=== PATIENT | male | born 1955 | race Caucasian/White ===

== ENCOUNTER 2024-01-14 14:18 | Outpatient (REF) | payer MEDICARE, SELFPAY ==
--- NOTE | ~2024-01-14 | US_ITS ---
EXAMINATION: US VENOUS ULTRASOUND WITH DOPPLER LOWER EXTREMITY, RIGHT CLINICAL INFORMATION: Right leg swelling with elevated d-dimer COMPARISON: None available. TECHNIQUE: Ultrasound of the deep veins is performed from the hip to the calf with compression sonography and color and pulse Doppler assessment. Spectral analysis with color-flow imaging is performed. FINDINGS: There is normal venous compression and respiratory variation and augmented flow. The visualized common femoral vein, superficial femoral vein, profunda femoral vein, popliteal vein, and the trifurcation region shows no evidence of deep venous thrombosis. There is no significant popliteal fossa cyst. If the patient's symptoms persist, followup ultrasound in 5 days 7 days might be of value to exclude proximal propagation from a non-visualized calf vein. US/US venous duplex LE RT IMPRESSION: No DVT demonstrated in the right lower extremity.
== END 2024-01-14 14:19 | disposition home or self-care (01) ==
LOC: HO.US 14:18
PROVIDERS: PCP Internal Medicine; Visit Provider Internal Medicine
DX: R60.0 Localized edema (principal); R79.1 Abnormal coagulation profile
CPT/HCPCS: 93971

== ENCOUNTER 2024-03-12 11:13 | Outpatient (REF) | payer MEDICARE, SELFPAY ==
--- NOTE | ~2024-03-12 | US_ITS ---
EXAMINATION: US THYROID CLINICAL INFORMATION: Thyroid nodule. COMPARISON: None available. TECHNIQUE: Linear transducer grayscale and color Doppler examination with attention to the region of the thyroid. FINDINGS: SIZE: Measurements of the thyroid lobes and nodules are given in sagittal, anteroposterior and transverse dimensions respectively. Right Thyroid Lobe: 5.8 x 2.3 x 2.4 cm, volume 16.5 mL. Parenchyma: The gland echotexture is homogeneous. Thyroid vascularity is increased. Left Thyroid Lobe: 4.7 x 1.7 x 1.8 cm, volume 7.0 mL. Parenchyma: The gland echotexture is homogeneous. Thyroid vascularity is normal. Isthmus: 0.2 cm in maximum AP dimension. Estimated total number of nodules greater than or equal to 1 cm: 1. Dump Grader nodules are described as follows: 1. Location: Right mid/lower pole. Size: 2.3 x 1.6 x 1.7 cm, volume 3.2 mL. Nodule characteristics: Composition: Solid (2). Echogenicity: Isoechoic (1). Shape: Not taller than wide (0). Margins: Smooth (0). Echogenic Foci: None (0). ACR TI-RADS total points: 3 ACR TI-RADS category: 3 NODES: No lymphadenopathy is seen in the tissue surrounding the thyroid gland. US/US thyroid IMPRESSION: Mild thyromegaly. Solid 2.3 cm TR 3 nodule in the right lobe, does not meet the ACR criteria for biopsy at this time however for which follow-up ultrasound in one year recommended. ACR TI-RADS RECOMMENDATION REFERENCE: Ultrasound-guided fine-needle aspiration, followup ultrasound, no further follow up. * TR1 (0 point) and TR2 (2 points): No FNA or follow up. * TR3 (3 points): FNA if more than or equal to 2.5 cm in maximum dimension, followup ultrasound in 1, 3 and 5 years if 1.5 to 2.4 cm in maximum dimension. * TR4 (4-6 points): FNA if more than or equal to 1.5 cm in maximum dimension, followup ultrasound in 1, 2, 3 and 5 years if 1 to 1.4 cm in maximum dimension. * TR5 (more than or equal to 7 points): FNA if more than or equal to 1 cm in maximum dimension, followup ultrasound every year for 5 years if 0.5 to 0.9 cm in maximum dimension. * TR3, TR4 or TR5 nodules that are below the size threshold for followup receive no follow up. Electronically signed by: Ana Lilia Mixon MD 04/24/2024 07:39 AM EST
== END 2024-03-12 11:14 | disposition home or self-care (01) ==
LOC: HO.US 11:13
PROVIDERS: PCP Internal Medicine; Visit Provider Internal Medicine
DX: E04.1 Nontoxic single thyroid nodule (principal)
CPT/HCPCS: 76536

== ENCOUNTER 2024-03-20 09:28 | Outpatient (AMB) | payer MEDICARE, SELFPAY ==
--- NOTE | 2024-03-20 09:56 | A.OFFVIS_ITS ---
<Statement entered by Jonny Perez MD - 03/21/24 08:36> I agree with history, findings, assessment and plan documented by Ching Lofton PA-c. We will obtain venous insufficiency testing to rule that out. Thank you for allowing our team to participate in this patient's care. 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 Patient states he has no pain. Swelling started a few months ago after starting a new blood pressure medication. Right leg swells more than left. 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 It in itially started several months ago after starting BP medication (Amlodipine); however, his BP meds have changed (Lisinopril-HCTZ) and the swelling persists. He has been elevating his legs without any relief. He denies any pain or aching in the legs. He denies any wounds. He states he is able to walk without difficulty but does have some tiredness in his legs. He states the swelling persists all day and is not worse at any specific time. He is a former smoker, quit appx 1y ago and is not a diabetic. He did smoke 1.5-2ppd for appx 50y. 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 He recently saw Dr Wang and was prescribed compression stockings and an Issac bandage, which he has not used yet. He has been elevating his legs with little relief. Review of Systems Const Reports as per HPI and Denies weakness ENT Reports Normal hearing present and Denies dizziness Card Reports as per HPI, Denies chest pain, Denies chest pain at rest, Denies chest pain with activity, Denies dyspnea and Denies dyspnea on exertion Resp Reports as per HPI, Denies cough, Denies dyspnea and Denies dyspnea on exertion GI Reports as per HPI, Denies abdominal pain, Denies nausea and Denies vomiting Musc Denies numbness Skin/Breast Reports as per HPI, Denies erythema and Denies wounds Neuro Reports Normal hearing present, Denies dizziness, Denies numbness, Denies Sensory deficit (Neuro) and Denies weakness Psych Reports no additional complaints Endo Reports no additional complaints Physical Exam Const General: healthy appearing and no acute distress Orientation/consciousness: patient oriented x3 HEENT Head: Yes normal to inspection Ears: hearing grossly normal bilaterally Mouth: Normal oral and palatal mucosa present Resp Effort & Inspection: normal respiratory effort and able to speak in complete sentences Auscultation: clear to auscultation bilaterally Cardio Jugular venous distension: no JVD Rate: regular rate Rhythm: regular rhythm Heart sounds: S1 normal heart sound present and S2 normal heart sound present Bruits: no abdominal aortic bruits, no carotid bruits, no femoral bruits and no renal bruits Peripheral pulses: Peripheral pulses 2+ throughout GI Inspection: Yes normal to inspection Palpation (GI): No Abdominal aortic bruit present Skin Other: 1-2+ pitting edema noted on RLE; 1+ pitting edema noted on LLE +DP and PT pulses bilaterally. No wounds/erythema/discoloration noted bilaterally CEAP C - 3, edema E - primary A - superficial P - reflux General skin exam: no rashes or lesions noted Wounds: no wounds Hair: normal Neuro General: patient oriented x3 Cranial nerves: Yes Normal hearing present Cognition (Neuro): normal cognition Gait exam (Neuro): Normal gait present Motor exam (neuro): 5/5 motor strength present throughout Sensory Exam: No Sensory deficit (Neuro) Extrem General: Yes normal to inspection, Yes full ROM, Yes capillary refill normal and Yes normal gait Results Reviewed Results Reviewed: Reviewed US duplex from 01/14/24. Awaiting lab results from PCP office. Assessment & Plan Assessment & Plan (1) Varicose veins of right lower extremity with inflammation: Code(s): I83.11 - Varicose veins of right lower extremity with inflammation Category: Medical Plan Everardo was sent here as a referral for LLE swelling, right > left. This has been going on for a few months now; it initially started after starting Amlodipine, w hich has now since be discontinued. He has been elevating his legs with no relief. He denies any pain or achiness and is able to walk long distances (>2 blocks) without any pain. He does endorse that his legs are very itchy and dry. He does note that his legs can get tired. The swelling occurs at all times of the day and is not worse at any specific time. US Duplex from 01/13 is negative for a DVT. The pt has not had any recent travel and is currently a former smoker. We have ordered a USVI to r/o venous insufficiency. We will have him follow up in the office after the US is completed. We discussed wearing compression stockings daily; he can reach out to Dr Wang about the Issac wrap. At this point I believe we should try the compression stockings first. We discussed continuing with elevation of the legs. we discussed to avoid hot showers/baths to further dry out his legs. We discussed using Jergens/Aquaphor/Vaseline for skin care/lotions. We discussed following up with his PCP to discuss a possible Cardiology referral for HTN as well as r/o HF. Orders: Orders US venous duplex LE BI 1 Week I83.11 - Varicose veins of right lower extremity with inflammation Coding Level of Care Code New Pt New Pt Level 4 (06392) New Pt Complex EM visit Add On G2211 Patient Type New Diagnoses Varicose veins of right lower extremity with inflammation I83.11 Time Spent (min) 40 Comment Reviewed US results. Pt education.
== END 2024-03-20 10:27 | disposition home or self-care (01) ==
PROVIDERS: PCP Internal Medicine; Visit Provider Surgery Vascular Surgery
DX: I83.11 Varicose veins of right lower extremity with inflammation (principal)
CPT/HCPCS: 99204; G2211

== ENCOUNTER → 2024-03-20 09:28 | Outpatient (BNVA) | payer MEDICARE, SELFPAY | PROVIDERS: PCP Internal Medicine; Visit Provider Surgery Vascular Surgery | DX: I83.11 Varicose veins of right lower extremity with inflammation (principal); Z87.891 Personal history of nicotine dependence | CPT/HCPCS: 99202 ==

== ENCOUNTER 2024-04-16 08:18 | Outpatient (REF) | payer MEDICARE, SELFPAY ==
--- NOTE | ~2024-04-16 | US_ITS ---
EXAMINATION: US LOWER EXTREMITY VENOUS (REFLUX EXAM), BILATERAL CLINICAL INDICATION: Chronic venous insufficiency with lower extremity varicose veins with inflammation COMPARISON: None. TECHNIQUE: Color flow triplex imaging and compression Doppler was performed to evaluate both the deep and the superficial systems bilaterally. To evaluate the superficial system, the examination was performed in the upright position. Color-flow Doppler ultrasound and compression ultrasound were utilized. In addition, maneuvers were utilized to demonstrate reflux. FINDINGS: 1. DEEP VENOUS ULTRASOUND OF THE RIGHT LOWER EXTREMITY: Common Femoral Vein: Compressible, normal respiratory variation and augmented flow. Femoral Vein: Compressible, normal color flow and augmentation. Popliteal Vein: Compressible, normal augmentation. Deep Reflux: There is no evidence of reflux in the deep system in either the common femoral vein, superficial femoral or the popliteal vein. There is no evidence of a Reynaga's cyst. 2. SUPERFICIAL ULTRASOUND WITH DOPPLER OF RIGHT LOWER EXTREMITY: GREAT SAPHENOUS VEIN: Saphenofemoral Junction: 0.7 cm; Reflux: 0 ms Proximal Thigh: 0.6 cm; Reflux: 0 ms Mid Thigh: 0.4 cm; Reflux: 0 ms Above Knee: 0.5 cm; Reflux: 0 ms At Knee: 0.3 cm; Reflux: 0 ms Below Knee: 0.3 cm; Reflux: 0 ms Mid Calf: 0.4 cm; Reflux: 0 ms Ankle: 0.3 cm; Reflux: 0 ms DUPLICATED MEDIAL GREAT SAPHENOUS VEIN: Diameter: None imaged Reflux: NA DUPLICATED LATERAL GREAT SAPHENOUS VEIN: Diameter: None imaged Reflux: NA SMALL SAPHENOUS VEIN: Saphenopopliteal Junction: 0.2 cm; Reflux: 0 ms Proximal: 0.2 cm; Reflux: 0 ms Distal: 0.2 cm; Reflux: 0 ms VEIN OF GIACOMINI: Size: NA Reflux: NA PERFORATORS: Location: None significant Size: NA Reflux: NA VARICOSITIES: Location: Mid calf Size: 0.2 cm Reflux: None 3. DEEP VENOUS ULTRASOUND OF THE LEFT LOWER EXTREMITY: Common Femoral Vein: Compressible, normal respiratory variation and augmented flow. Femoral Vein: Compressible, normal color flow and augmentation. Popliteal Vein: Compressible, normal augmentation. Deep Reflux: There is no evidence of reflux in the deep system in either the common femoral vein, superficial femoral or the popliteal vein. There is no evidence of a Reynaga's cyst. 4. SUPERFICIAL ULTRASOUND WITH DOPPLER OF LEFT LOWER EXTREMITY: GREAT SAPHENOUS VEIN: Saphenofemoral Junction: 0.6 cm; Reflux: 0 ms Proximal Thigh: 0.6 cm; Reflux: 0 ms Mid Thigh: 0.4 cm; Reflux: 0 ms Above Knee: 0.4 cm; Reflux: 0 ms At Knee: 0.3 cm; Reflux: 0 ms Below Knee: 0.3 cm; Reflux: 0 ms Mid Calf: 0.2 cm; Reflux: 0 ms Ankle: 0.2 cm; Reflux: 0 ms DUPLICATED MEDIAL GREAT SAPHENOUS VEIN: Diameter: None imaged Reflux: NA DUPLICATED LATERAL GREAT SAPHENOUS VEIN: Diameter: None imaged Reflux: NA SMALL SAPHENOUS VEIN: Saphenopopliteal Junction: 0.2 cm; Reflux: 0 ms Proximal: 0.2 cm; Reflux: 0 ms Distal: 0.2 cm; Reflux: 0 ms VEIN OF GIACOMINI: Size: NA Reflux: NA PERFORATORS: Location: None significant Size: NA Reflux: NA VARICOSITIES: Location: None significant Size: NA Reflux: NA US/US venous duplex LE BI IMPRESSION: 1. Right: No significant venous insufficiency or reflux. 2. Left: No significant venous insufficiency or reflux. Electronically signed by: Jonathan Cramer MD 05/07/2024 01:06 PM TAMAR
== END 2024-04-16 08:19 | disposition home or self-care (01) ==
LOC: HO.US 08:18
PROVIDERS: Visit Provider Physician Assistant Surgical
DX: I83.11 Varicose veins of right lower extremity with inflammation (principal)
CPT/HCPCS: 93970

== ENCOUNTER → 2024-05-07 13:21 | Outpatient (REF) | payer MEDICARE, SELFPAY ==
--- NOTE | 2024-05-07 13:26 | CA_ITS ---
Transthoracic Echocardiogram Patient (Last, First, Middle): Everardo Almendarez, Gender: Male Date of : 1955 Age: 68 Procedure Date: 05/07/2024 Procedure Type: Transthoracic Echocardiogram Location: OP Height: 180.34 cm Weight: 72.58 kg BSA: 1.92 m2 Heart Rate: bpm BP: 122 / 78 mmHg Family Support Coordinator: SUZI Referring MD: Saroj Quintero MD Symptoms: EDEMA LOWER EXT R60.0 Study Quality: Fair ECG Rhythm: Sinus Conclusions: - The left ventricular systolic function is normal. The calculated ejection fraction is 55% by biplane method. - No obvious valvular pathology seen on this study. Findings Left Ventricle Normal left ventricular cavity size. There is normal left ventricular wall thickness. The left ventricular systolic function is normal. The calculated ejection fraction is 55% by biplane method. There is no evidence of regional wall motion abnormalities. Diastolic function is normal for age. Right Ventricle Normal right ventricular cavity size. There is mildly decreased right ventricular systolic function. Atria Both atria are normal in size. Aortic Valve There is a normal trileaflet aortic valve. There is no aortic valve stenosis. There is no aortic valve regurgitation. Mitral Valve There is mild anterior mitral leaflet thickening. There is mild mitral annular calcification. There is trace mitral valve regurgitation. There is no mitral valve stenosis. Pulmonic Valve The pulmonic valve is likely normal. Tricuspid Valve Normal tricuspid valve structure. There is trace tricuspid valve regurgitation. There is no evidence of pulmonary hypertension. Great Vessels The asc aorta and aortic arch are normal in size. Small plaque is seen in the sino tubular ridge. Venous The inferior vena cava is normal in size and collapses greater than 50% with inspiration. Pericardium/Pleural There is no evidence of pericardial effusion. Prior Study Comparison No prior study available for comparison. Recommendations, Care & Conclusions No obvious valvular pathology seen on this study. Measurements 2D Linear Measurements IVSd: 0.94 0.6-0.9/0.6-1.0 cm LVIDd: 4.11 3.9-5.3/4.2-5.9 cm LVIDd Index: 2.14 2.4-3.2/2.2-3.1 cm/m2 LVIDs: 2.92 2.0-3.6 cm LVPWd: 0.90 0.7-1.1 cm Ao Root: 3.50 2.1-3.5 cm LA Diam: 3.10 2.7-3.8/3.0-4.0 cm LAIDs Index: 1.61 1.5-2.3 cm/m2 LV Mass: 146.43 67-162/88-224 g LV Mass Index: 76.26 43-95/49-115 g/m2 LVOT Diam: 2.20 3.0+(-)1.3 cm 2D Systolic Function EF 4C: 55.00 >55% EF 2C: 53.50 >55% EF BiP: 55.10 >55% Mitral Valve MV Pk E: 0.59 MV PK A: 0.89 MV Decel Time: 323.00 E/A: 0.70 E'Lateral: 9.90 E'Medial: 6.09 E/E' Med: 9.70 E/E' Lat: 6.00 PHT: 95.00 MVA PHT: 2.32 Decel Gage: 1.83 Aortic Valve AoV Pk Alexis: 1.32 AoV Mn Alexis: 0.99 AoV VTI: 0.22 AoV Pk Grad: 7.00 Aov Mn Grad: 4.00 TAYLA Cont.VTI: 2.36 LVOT LVOT Pk Alexis: 0.74 LVOT Mn Alexis: 0.54 LVOT VTI: 0.14 LVOT Pk Grad: 2.00 LVOT Mn Grad: 1.00 LVOT Diam: 2.20 LVOT Area: 3.80 Diastolic Function MV Pk E: 0.59 MV Pk A: 0.89 E/A: 0.70 E'Medial: 6.09 E/E' Med: 9.70 E' Laterial: 9.90 E/E' Lat: 6.00 Right Ventricle TAPSE (mm): 18.30 TVS' Alexis: 8.49 Tricuspid Valve TR Pk Alexis: 2.66 TR Pk Grad: 28.00 RA Press: 3.00 RVSP: 31.00 Great Vessels Aorta Ao Root-2D: 3.50 2.0-3.7 cm Ao Asc: 3.40 2.1-3.4 cm Ao Arch: 3.30 Updated in Other Vendor System with Status of Final Quang Serrano MD electronically signed on 05/09/2024 11:56:18 AM with status of Final
== END ==
LOC: HO.CARD 13:21
PROVIDERS: PCP Internal Medicine; Visit Provider Internal Medicine
DX: R60.0 Localized edema (principal)
CPT/HCPCS: 93306

== ENCOUNTER → 2024-05-07 13:26 | Outpatient (BNV) | payer MEDICARE, SELFPAY | PROVIDERS: PCP Internal Medicine; Visit Provider Internal Medicine | DX: I34.81 Nonrheumatic mitral (valve) annulus calcification (principal) | CPT/HCPCS: 93306 ==

== ENCOUNTER 2024-05-22 09:48 | Outpatient (AMB) | payer MEDICARE, SELFPAY ==
--- OUTSIDE RECORDS SUMMARY | 2024-05-22 09:49 | XMS_ITS | Continuity of Care Document ---
Author Organization [facility] Address [address] [place] [address] Phone Care Team Providers Care Class A Regional Drivers Name Role Phone Felipe WILL, MICHAEL, TAMMY, Kem Unavailable U navailable Procedures Procedure Date Office/Oupt E&M New Pt 30 Mins- CT & [place] Surgical Stockings Juxlite Knee 024 Duplex Scan-extrem Veins; Uni/ CT & [place] S Advance Directives Directive Yes / No Effective Date File Name Other Directive No 03/06/2024 N/A WARNING:The information contained in this section is historical and is provided for information only and does not constitute a legal document or any assurance that the information is still accurate. Please verify the information with the rowe of the legal document before using it for clinical purposes. Encounters Encounter Description Practice Location Reason(s) For Visit Diagnoses Date Provider Providers Copied on Encounter Office/Oupt E&M New Pt 30 Mins- CT & [place] [facility], [address] [place] [address] [address], [id number], [place] tel:[phone] CVR - [place] [facility] [place] Localized edemaRestless legs syndromeVenous insufficiency (chronic) (peripheral)Pr uritus, unspecifiedEss ential (primary) hypertension Sep- 4 Felipe WILL, MICHAEL, TAMMY [place]. [address], [facility] [place], [id number] , [place]. tel:[phone] Referring Provider: Saroj Quintero MD J, [facility], [place], [address]. tel:[phone] [facility], [address], [place], [id number], tel:[phone] CVR - [facility] Chronic venous hypertension (idiopathic) with other complications of right lower extremity Sep- 4 Felipe WILL, RVT, RPFER [place]. [address], [place], [place], [id number] , [place]. tel:[phone] Referring Provider: Saroj Quintero MD J, [address], [place], [address]. tel:[phone] Family History Family Member Type Diagnosis Age At Onset No Information Payers Payer name Insurance type Covered green party ID Authoriza tion(s) [facility] AARP Medic are Complete CI [id number] Social History Type Description Quantity Date Captured Comments Alcohol Use Details Unknown Caffeine Use Details Unknown Tobacco Use Status No Information Smoking Status Former Smoker Non-Smoking Tobacco Use Details : No Details Available : No Details Available Sex Male Vital Signs Date / Time: Height Weight BMI Pulse Rate Blood Pressure Temperature Respiratory Rate Body Surface Area Head Circumference Head Circ. Percentile Wt./[place]. Percentile BMI percentile Pulse Ox Inhaled Ox 72.570 kg (160.00 lbs) 22.4 2 kg/m eter (2) 110/70 mm[Hg] Chief Complaint And Reason For Visit No Information Reason For Referral Reason For Referral No Information Plan Of Treatment Date Type Action Status Goal Tobacco cessation counseling completed Appointment Everardo Almendarez (6 Month) BOOK ED Appointment Everardo Almendarez (6 Month) BOOK ED History Of Present Illness Encounter Date Complaint History Of Prese nt Illness No Information Functional Status Date Functional Assessmen t No Information Instructions Date Instruction Additional Infor mation Patient education booklet given Related to Localized edema Compression stocking usage as conservative measure Related to Localized edema Assessments Type Assessment Date No Information Patient Care Teams Name Effective Dates (start - stop) Status Members No Information
--- NOTE | 2024-05-22 09:54 | MHC.OFFVIS ---
Vital Signs 05/22/24 09:55 Height 5 ft 11 in Weight 160 lb BMI 22.3 Intake Visit Reasons: follow up s/p [facility] 04/16/24 Intake Note: Follow up [facility] 04/16/24, Pt has LE swelling, Right worse than the Left LE. Pt states that [employer] has already come out and he is waiting on the shipment of the machine. Accompanied by: Self / Same As Patient Allergies No Known Allergies Allergy (Verified 05/22/24 09:58) HPI HPI follow up s/p [facility] 04/16/24: Details: Everardo, a pleasant 68 yo male patient, is presenting today for a follow up to his [facility] on 04/16/24. He continues with swelling of his lower extremities. He does wear compression stockings and does elevate his legs. He is also being followed by Cardiology and recently had a COURTNEY. He is also following with [facility] and was measured for lymphedema compression pumps, which have been ordered and he states will be coming to his house soon. [facility] Medical History (Updated 05/22/24 @ 10:00 by WADE May) COPD (chronic obstructive pulmonary disease) Lung cancer Prostate cancer Review of Systems Const Reports as per HPI and Denies weakness ENT Reports Normal hearing present and Denies dizziness Card Reports as per HPI, Denies chest pain, Denies chest pain at rest, Denies chest pain with activity, Denies dyspnea and Denies dyspnea on exertion Resp Reports as per HPI, Denies cough, Denies dyspnea and Denies dyspnea on exertion GI Reports as per HPI, Denies abdominal pain, Denies nausea and Denies vomiting Musc Denies numbness Skin/Breast Reports as per HPI, Denies erythema and Denies wounds Neuro Reports Normal hearing present, Denies dizziness, Denies numbness, Denies Sensory deficit (Neuro) and Denies weakness Psych Reports no additional complaints Endo Reports no additional complaints Physical Exam Vital Signs: BMI result Body Mass Index 22.3 Const General: healthy appearing and no acute distress Orientation/consciousness: patient oriented x3 HEENT Head: Yes normal to inspection Ears: hearing grossly normal bilaterally Mouth: Normal oral and palatal mucosa present Resp Effort & Inspection: normal respiratory effort and able to speak in complete sentences Auscultation: clear to auscultation bilaterally Cardio Jugular venous distension: no JVD Rate: regular rate Rhythm: regular rhythm Heart sounds: S1 normal heart sound present and S2 normal heart sound present Bruits: no abdominal aortic bruits, no carotid bruits, no femoral bruits and no renal bruits Peripheral pulses: Peripheral pulses 2+ throughout GI Inspection: Yes normal to inspection Palpation (GI): No Abdominal aortic bruit present Skin General skin exam: no rashes or lesions noted Wounds: no wounds Hair: normal Neuro General: patient oriented x3 Cranial nerves: Yes Normal hearing present Cognition (Neuro): normal cognition Gait exam (Neuro): Normal gait present Motor exam (neuro): 5/5 motor strength present throughout Sensory Exam: No Sensory deficit (Neuro) Extrem Other: Bilateral lower extremities: +1 peripheral edema noted. Palpable DP pulses. General: Yes normal to inspection, Yes full ROM, Yes capillary refill normal and Yes normal gait Results Reviewed Results Reviewed: Brief summary of venous insufficiency testing is as follows: right great saphenous vein: negative right small saphenous vein: negative right accessory vein: none present left great saphenous vein: negative left small saphenous vein: negative left accessory vein: none present Please note there is no evidence of any venous aneurysms or significant tortuosity Assessment & Plan Assessment & Plan (1) Varicose veins of right lower extremity with inflammation: Code(s): I83.11 - Varicose veins of right lower extremity with inflammation Category: Medical Plan: Everardo is presenting today as a follow up to venous insufficiency ultrasound performed on 04/16/2024. There was no venous insufficiency noted on the ultrasound. He is followed by cardiology and recently had an echo done. He has also been referred to [facility] and does have lymphedema compression pumps that will be sent to his house soon. He will like as an aspect of lymphedema and we do believe these pumps will be helpful. We did discuss the follow up with Cardiology and to get the results of the echo. We discussed to continue with his current medication treatment. We discussed continuing with compression stockings, elevation, and physical activity as well as with a healthy, nutritious diet. We will follow up with him as needed. If there are any questions or concerns, please do not hesitate to reach out to us. Coding Level of Care Code Est Pt Level 4 (59306) Diagnoses Varicose veins of right lower extremity with inflammation I83.11 Comment Review of venous insufficiency ultrasound
[2024-05-22 09:55] VITALS: BMI 22.3
== END 2024-05-22 10:19 | disposition home or self-care (01) ==
PROVIDERS: PCP Internal Medicine; Visit Provider Physician Assistant Surgical
DX: I83.11 Varicose veins of right lower extremity with inflammation (principal)
CPT/HCPCS: 99214

== ENCOUNTER → 2024-05-22 09:48 | Outpatient (BNVA) | payer MEDICARE, SELFPAY | PROVIDERS: PCP Internal Medicine; Visit Provider Physician Assistant Surgical | DX: I83.11 Varicose veins of right lower extremity with inflammation (principal) | CPT/HCPCS: 99212 ==

== ENCOUNTER 2024-09-29 11:10 | Outpatient (REF) | payer MEDICARE, SELFPAY ==
--- NOTE | ~2024-09-29 | US_ITS ---
EXAMINATION: US THYROID CLINICAL INFORMATION: Single thyroid nodule COMPARISON: Ultrasound thyroid 03/12/2024 TECHNIQUE: Linear transducer grayscale and color Doppler examination with attention to the region of the thyroid. FINDINGS: SIZE: Measurements of the thyroid lobes and nodules are given in sagittal, anteroposterior and transverse dimensions respectively. Right Thyroid Lobe: 5.6 x 2.2 x 2.3 cm, volume 15.1 mL. Previously measured 5.8 x 2.3 x 2.4 cm in volume 16.5 mL. Parenchyma: The gland echotexture is heterogeneous. Thyroid vascularity is enlarged. Left Thyroid Lobe: 4.0 x 1.8 x 1.7 cm, volume 6.5 mL. Parenchyma: The gland echotexture is normal. Thyroid vascularity is normal. Isthmus: 0.32 cm in maximum AP dimension. Previously measured 0.20 cm Estimated total number of nodules greater than or equal to 1 cm: 1. Home Care Chaplain nodules are described as follows: 1. Location: Right mid pole. Size: 2.3 x 1.7 x 1.9 cm, volume 4.0 mL. Previously measured 2.3 x 1.6 x 1.7 cm in volume 3.2 mL Nodule characteristics: Composition: Solid (2). Echogenicity: Isoechoic (1). Shape: Not taller than wide (0). Margins: Smooth (0). Echogenic Foci: None (0 ACR TI-RADS total points: 3 ACR TI-RADS category: 3 NODES: No lymphadenopathy is seen in the tissue surrounding the thyroid gland. US/US thyroid IMPRESSION: Solitary hyperechoic solid lesion right mid pole, unchanged to previous exam. Recommend continued follow-up in 3 years ACR TI-RADS RECOMMENDATION REFERENCE: Ultrasound-guided fine-needle aspiration, followup ultrasound, no further follow up. * TR1 (0 point) and TR2 (2 points): No FNA or follow up. * TR3 (3 points): FNA if more than or equal to 2.5 cm in maximum dimension, followup ultrasound in 1, 3 and 5 years if 1.5 to 2.4 cm in maximum dimension. * TR4 (4-6 points): FNA if more than or equal to 1.5 cm in maximum dimension, followup ultrasound in 1, 2, 3 and 5 years if 1 to 1.4 cm in maximum dimension. * TR5 (more than or equal to 7 points): FNA if more than or equal to 1 cm in maximum dimension, followup ultrasound every year for 5 years if 0.5 to 0.9 cm in maximum dimension. * TR3, TR4 or TR5 nodules that are below the size threshold for followup receive no follow up. Electronically signed by: Jelani Raman MD 09/30/2024 09:50 AM EDT
--- OUTSIDE RECORDS SUMMARY | 2024-09-29 11:12 | XMS_ITS | Clinical Summary ---
Author Organization [facility] Address [address] [place] [address] Care Team Providers Care Supervisor Pumping Name Role Phone Saroj Quintero MD Primary Care Provider [phone] Medications Medication Sig Dispensed Refills Start Date End Date Status finasteride (PROPECIA) 1 MG tablet Take 1 mg by mouth daily. 0 Active rOPINIRole (REQUIP) 1 MG tablet Take 1 mg by mouth 3 (three) times a day. 0 Active Multiple Vitamins-Minerals (MULTIVITAMIN ADULTS PO) Take by mouth. 0 Active atorvastatin (LIPITOR) tablet 20 mg Take 20 mg by mouth daily. 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 Social History Tobacco Use Types Packs/Day Years Used Date Smoking Tobacco: Never Assessed Sex and Gender Information Value Date Recorded Sex Assigned at Not on file Gender Identity Not on file Sexual Orientation Not on file Job Start Date Occupation Industry Not on file Not on file Not on file Last Filed Vital Signs Vital Sign Reading Time Taken Comments Blood Pressure 138/86 03/13/2022 9:27 AM EDT Pulse 84 03/13/2022 9:27 AM EDT Temperature 36.9 ??C (98.4 ??F) 03/13/2022 9:27 AM ED T Respiratory Rate - - Oxygen Saturation 100% 03/13/2022 9:27 AM EDT Inhaled Oxygen Concentration - - Weight 63.5 kg (140 lb) 03/13/2022 9:27 AM EDT Height 177.8 cm (5' 10 ) 03/13/2022 9:27 AM EDT Body Mass Index 20.09 03/13/2022 9:27 AM EDT Plan of Treatment Health Maintenance Due Date Last Done Comments Hepatitis C Screening 1954 Depression Screening 1966 Preventative Health Evaluation 1972 Shingrix-Zoster Vaccine (1 o f 2) 1973 Colon Cancer Screening (Colonoscopy) 11/19/1999 Fall Risk Assessment 11/19/2019 COVID-19 Vaccine (4 - 2023-2 5 season) 2024 05/20/2021, 10/12/2020, 09/21/2020 Influenza Vaccine (#1) 2024 05/20/2021 RSV Adult > 60+ Yrs or (1 - 1-dose 75+ series) 2029 DTap / Tdap / Td (3 - Td or Tdap) 09/13/2031 09/12/2021, 07/18/2011 Pneumococcal Vaccine Completed 01/24/2021, 01/13/2020 Hepatitis B Vaccines Aged Out No long er eligible based on patient's age to complete this topic RSV Ped < 20 months Aged Out No longe r eligible based on patient's age to complete this topic Care Teams Supervisor Pumping Relationship Specialty Start Date End Date Saroj Quintero MD [address] [address] PCP - General Internal Medicine 05/19/21
--- OUTSIDE RECORDS SUMMARY | 2024-09-29 11:12 | XMS_ITS | Clinical Summary ---
Author Organization [address] [facility] Address [address] [place] [address] Phone Care Team Providers Care Machine Maintenance Technician Name Role Phone Saroj Quintero MD Primary Care Provider Allergies No known active allergies Medications multivitamin (MULTIPLE VITAMINS ORAL) Take 1 tablet by mouth 1 (one) time each day. Active atorvastatin (LIPITOR) 20 mg tablet Take 1 tablet (20 mg total) by mouth 1 (one) time each day. Active rOPINIRole (REQUIP) 1 mg tablet Take 1 tablet (1 mg total) by mouth 3 (three) times a day. Active minoxidiL (LONITEN) 2.5 mg tablet Take 1 tablet (2.5 mg total) by mouth 1 (one) time each day. Active Trelegy Ellipta 100-62.5-25 mcg inhaler inhale one puff into the lungs daily. 3 each 3 06/05/2024 5 Active Active Problems Problem Noted Date Diagnosed Date Tubular adenoma of colon 07/26/2021 Restless leg syndrome 07/26/2021 Irritable bowel syndrome 07/26/2021 Hyperlipidemia 07/26/2021 Prostate cancer metastatic t o bone (CMS/HCC V24, CMS/HCC V28) 05/26/2021 Surgical History Surgery Date Site/Laterality Comments COLONOSCOPY 10/12/2021 PROCEDURE: HISTORICAL COLONOSCOPY; COMMENT: tubular adenomas Medical History Medical History Date Comments Hyperlipidemia 07/26/2021 DX:Hyperlipidemi a Irritable bowel syndrome 07/26/2021 DX:Irri table bowel syndrome Restless leg syndrome 07/26/2021 DX:Restles s leg syndrome Tubular adenoma of colon 07/26/2021 DX:Tubu lar adenoma of colon Family History Medical History Relation Name Comments Brain cancer Brother Breast cancer Mother Relation Name Status Comments Brother Mother Social History Tobacco Use Types Packs/Day Years Used Date Smoking Tobacco: Former Smokeless Tobacco: Never Alcohol Use Standard Drinks/Week Comments Yes 2 (1 standard drink = 0.6 oz pur e alcohol) Sex and Gender Information Value Date Recorded Sex Assigned at Not on file Legal Sex Male 6:32 AM EST Gender Identity Not on file Sexual Orientation Not on file Obstetrics History Last Filed Vital Signs Vital Sign Reading Time Taken Comments Blood Pressure 122/70 06/05/2024 8:24 AM EST Pulse 80 06/05/2024 8:24 AM EST Temperature 36.2 ??C (97.2 ??F) 06/05/2024 8:24 AM ES T Respiratory Rate 24 06/05/2024 8:24 AM EST Oxygen Saturation 91% 06/05/2024 8:24 AM EST Inhaled Oxygen Concentration - - Weight 74.7 kg (164 lb 9.6 oz) 06/05/2024 8:24 A M EST Height 180.3 cm (5' 11 ) 06/05/2024 8:24 AM EST Body Mass Index 22.96 06/05/2024 8:24 AM EST Plan of Treatment Upcoming Encounters Date Type Department Care Team (Late st Contact Info) Description 12/04/2024 10:30 AM EDT [facility] [address] [facility] [address] [place] [id number] Hailey Kincaid MD [address] [facility] [address] [place] [address] Health Maintenance Due Date Last Done Comments Abdominal Aortic Aneurysm (AAA) Screen 05/19/2022 Cholesterol Screening (Lipid Panel) 05/19/2022 Depression Screening 05/19/2022 Falls Risk Assessment 05/19/2022 Hepatitis C Screening 05/19/2022 Medicare Annual Wellness Visit 05/19/2022 Social Influencers of Health Screening 05/19/2022 Hypertension/CHF/CAD Annual BMP Blood Test 06/05/2024 COVID-19 Vaccine (7 - Pfizer risk season) 2024 03/11/2024, 06/09/2023, 10/17/2022, Additional history exists Colorectal Cancer Screening: Colonoscopy 10/12/2026 10/12/2021 DTaP,Tdap,and Td Vaccines (3 - Td or Tdap) 09/13/2031 09/12/2021, 07/18/2011 Pneumococcal Vaccine: 50+ Years Completed 01/24/2021, 01/13/2020 Zoster Vaccines Completed 05/19/2022, 03/19/2022 RSV Immunization Adult Patients Completed 06/09/2023 Influenza Vaccine Completed 02/26/2024, , 02/17/2022, Additional history exists HIB Vaccines Aged Out No longer eligi ble based on patient's age to complete this topic HPV Vaccines Aged Out No longer eligi ble based on patient's age to complete this topic Hepatitis A Vaccines Aged Out No long er eligible based on patient's age to complete this topic Hepatitis B Vaccines Aged Out No long er eligible based on patient's age to complete this topic IPV Vaccines Aged Out No longer eligi ble based on patient's age to complete this topic MMR Vaccines Aged Out No longer eligi ble based on patient's age to complete this topic Meningococcal ACWY Vaccine Aged Out N o longer eligible based on patient's age to complete this topic Meningococcal B Vaccine Aged Out No l onger eligible based on patient's age to complete this topic RSV Immunization Patients Under 20 months Aged Out No longer eligible based on patient's age to complete this topic Varicella Vaccines Aged Out No longer eligible based on patient's age to complete this topic Procedures Procedure Name Priority Date/Time Associated Diagnosis Comments COLONOSCOPY Routine 10/12/2021 from Last 3 Months or Most Recently Relevant to Health Maintenance Results * Colonoscopy (10/12/2021) Colonoscopy No interpretation , abstracted Anatomical Region Laterality Modality Other us Historical Provider MD HEALTH MAINTENANCE Final Result from Last 3 Months or Most Recently Relevant to Health Maintenance Insurance [employer] MED[employer]ARE Care Teams Machine Maintenance Technician Relationship Specialty Start Date End Date Saroj Quintero MD [address] PCP - General Internal Medicine 07/06/21
--- OUTSIDE RECORDS SUMMARY | 2024-09-29 11:12 | XMS_ITS | Continuity of Care Document ---
Author Organization [facility] Address [address] [place] [address] Phone Care Team Providers Care Leaflet Distributor Name Role Phone Felipe WILL, MCIHAEL, TAMMY, Kem Unavailable U navailable Procedures Procedure Date Office/Outpt E&M Established 15 Mins- CT & [place] PT Did Not Receive Services Office/Oupt E&M New Pt 30 Mins- CT & [place] Surgical Stockings Juxlite Knee 024 Duplex Scan-extrem Veins; Uni/ CT & [place] S Advance Directives Directive Yes / No Effective Date File Name Other Directive No 09/03/2024 N/A WARNING:The information contained in this section is historical and is provided for information only and does not constitute a legal document or any assurance that the information is still accurate. Please verify the information with the rowe of the legal document before using it for clinical purposes. Encounters Encounter Description Practice Location Reason(s) For Visit Diagnoses Date Provider Providers Copied on Encounter Office/Outpt E&M Established 15 Mins- [place] & [place] [facility], [address], [id number], [place] tel:[phone] [facility] - [place] Lymphedema, not elsewhere classifiedRest less legs syndromeVenous insufficiency (chronic) (peripheral)Es sential (primary) hypertensionPr uritus, unspecified Felipe WILL RVT, RPVI Robert. [address] [place] [address], [address], [facility], [place], [id number] , [place]. tel:[phone] Referring Provider: Saroj Villareal, [address] [place] [address], [place], [address]. tel:[phone] [facility], [address] [place] [address] [address], [place], [id number], [place] tel:[phone] [facility] - [place] No Information Mar- 5 Felipe WILL RVT, RPVI Robert. [address] [place] [address], [facility], [id number] , [place]. tel:[phone] Referring Provider: Saroj Villareal, [address] [place] [address], [place], [address]. tel:[phone] Office/Oupt E&M New Pt 30 Mins- [place] & [place] [facility], [address] [place] [address] [address], [place], [id number], [place] tel:[phone] [facility] [place] Localized edemaRestless legs syndromeVenous insufficiency (chronic) (peripheral)Pr uritus, unspecifiedEss ential (primary) hypertension Sep-2 4 Felipe WILL RVT, RPVI Robert. [address] [place] [address], [facility], [place], [id number] , [place]. tel:[phone] Referring Provider: Saroj Villareal, [address] [place] [address] Suite [facility], [place], [address]. tel:[phone] [facility], [address] [place] [address] [address], [place], [id number], [place] tel:[phone] [facility] - [facility] Chronic venous hypertension (idiopathic) with other complications of right lower extremity Feb- 4 Felipe WILL RVT, RPVI Robert. [address] [place] [address], [facility], [place], [id number] , [place]. tel:[phone] Referring Provider: Saroj Quintero MD J, [address] [facility] [address], [place], [address]. tel:[phone] Family History Family Member Type Diagnosis Age At Onset No Information Payers Payer name Insurance type Covered libertarian ID Latricia kimble(s) [facility] AAR Medic are Complete CI [id number] Social History Type Description Quantity Date Captured [...] Action Status Goal Tobacco cessation counseling completed Goal Tobacco cessation counseling completed Appointment Everardo Almendarez BOOKED Appointment Everardo Almendarez BOOKED History Of Present Illness Encounter Date Complaint History Of Prese nt Illness No Information Functional Status Date Functional Assessmen t No Information Instructions Date Instruction Additional Infor thu Compression stocking usage as conservative measure Related to Lymphedema, not elsewhere classified Patient education booklet given Related to Lymphedema, not elsewhere classified Patient education booklet given Related to Localized edema Compression stocking usage as conservative measure Related to Localized edema Assessments Type Assessment Date No Information Patient Care Teams Name Effective Dates (start - stop) Status Members No Information
== END 2024-09-29 11:11 | disposition home or self-care (01) ==
LOC: HO.US 11:10
PROVIDERS: PCP Internal Medicine; Visit Provider Internal Medicine
DX: E04.1 Nontoxic single thyroid nodule (principal)
CPT/HCPCS: 76536

== ENCOUNTER → 2024-09-29 11:21 | Outpatient (BNV) | payer MEDICARE, SELFPAY | PROVIDERS: PCP Internal Medicine; Visit Provider Radiology Diagnostic Radiology | DX: E04.1 Nontoxic single thyroid nodule (principal) | CPT/HCPCS: 76536 ==